=== PATIENT | female | born 1975 | race Caucasian/White ===

== ENCOUNTER 2022-03-17 16:30 | Inpatient (IN) | payer MEDICAID ==
[~2022-03-17] VITALS: Ht 160 cm; Wt 70.4 kg
[2022-03-17] MEDS ORDERED: SODIUM CHLORIDE 0.9% 1,000 ML IV ONE (17:45)
[2022-03-17 18:29] LABS: BASOPHILS % 0.4 % (0.0-2.0); EOSINOPHILS % 0.9 % (0.0-5.0); HEMATOCRIT. 35.8 % (36.0-48.0); HEMOGLOBIN. 12.3 g/dL (12.0-16.0); LYMPHOCYTES % 10.5 % (20.0-50.0); MEAN CORPUSCULAR HEMOGLOBIN 28.8 pg (28.0-32.0); MEAN CORPUSCULAR VOLUME 83.5 fL (81.0-99.0); MEAN PLATELET VOLUME 7.5 fl (7.4-10.4); MONOCYTES % 5.7 % (2.0-8.0); NEUTROPHILS % 82.5 % (40.0-76.0); PLATELET 166 x1000/uL (130-400); RED BLOOD CELL COUNT 4.29 mill/uL (4.2-5.4); RED CELL DISTRIBUTION WIDTH 17.8 % (11.6-14.6)
[2022-03-17 18:35] LABS: CHLORIDE 110 mEq/L (98-107)
[2022-03-17 18:36] LABS: HCG SCREEN NEGATIVE
[2022-03-17] MEDS ORDERED: LORAZEPAM 2MG/ML CPJ IV ONE (19:00)
[2022-03-17] MEDS ORDERED: POTASSIUM CHLORIDE 20MEQ TABLET SR PO ONE (19:00)
[2022-03-17] MEDS ORDERED: ASPIRIN 325MG EC TABLET PO ONE (19:00)
[2022-03-18] MEDS ORDERED: ACETAMINOPHEN 325MG TABLET PO PRN (09:30)
[2022-03-18] MEDS ORDERED: ONDANSETRON HCL 4MG/2ML INJ IV PRN (09:30)
[2022-03-18 12:00] VITALS: BP 91/55
[2022-03-18] MEDS: RISPERIDONE 0.25MG TABLET PO SCH ×2 (14:00→21:00)
[2022-03-18] MEDS ORDERED: RISPERIDONE 0.5MG TABLET PO SCH (14:00)
[2022-03-18 16:00] VITALS: BP 104/64
[2022-03-18 20:00] VITALS: BP 92/45
[2022-03-19] VITALS: BP 114/51
[2022-03-19 04:00] VITALS: BP 101/55
[2022-03-19 06:35] LABS: BASOPHILS % 0.7 % (0.0-2.0); EOSINOPHILS % 1.8 % (0.0-5.0); HEMATOCRIT. 32.1 % (36.0-48.0); HEMOGLOBIN. 11.3 g/dL (12.0-16.0); LYMPHOCYTES % 15.1 % (20.0-50.0); MEAN CORPUSCULAR HEMOGLOBIN 29.2 pg (28.0-32.0); MEAN CORPUSCULAR VOLUME 83.1 fL (81.0-99.0); MEAN PLATELET VOLUME 7.4 fl (7.4-10.4); MONOCYTES % 7.4 % (2.0-8.0); PLATELET 123 x1000/uL (130-400); RED BLOOD CELL COUNT 3.86 mill/uL (4.2-5.4); RED CELL DISTRIBUTION WIDTH 17.9 % (11.6-14.6)
[2022-03-19 06:38] LABS: CHLORIDE 111 mEq/L (98-107)
[2022-03-19] MEDS ORDERED: POTASSIUM CHLORIDE INJ 60 MEQ in DEXT 5% WATER 250 ML IV ONE (07:00)
[2022-03-19 08:00] VITALS: BP 92/53
[2022-03-19] MEDS: KCL 20MEQ/100ML X 2 FOR TOTAL KCL 40MEQ/200ML IV SCH ×3 (08:54→16:15)
[2022-03-19] MEDS: RISPERIDONE 0.25MG TABLET PO SCH ×2 (08:55→20:14)
[2022-03-19 12:00] VITALS: BP 86/52
[2022-03-19] MEDS ORDERED: SODIUM CHLORIDE 0.9% 250 ML IV ONE (12:00)
[2022-03-19 15:36] LABS: CLARITY URINE TURBID (CLEAR); COLOR URINE DARK YELLOW (YELLOW); KETONES URINE 2+ (NEGATIVE); LEUKOCYTE ESTERASE URINE 2+ (NEGATIVE); NITRITE URINE POSITIVE (NEGATIVE); OCCULT BLOOD URINE 3+ (NEGATIVE); PROTEIN URINE 2+ (NEGATIVE); SPECIFIC GRAVITY URINE 1.024 (1.005-1.030)
[2022-03-19 16:00] VITALS: BP 88/53
[2022-03-19] MEDS: CEFTRIAXONE 1,000 MG in DEXTROSE 5% WATER 50 ML IV SCH (18:06)
[2022-03-19 20:00] VITALS: BP 114/66
[2022-03-20] VITALS: BP 100/77
[2022-03-20 04:00] VITALS: BP 100/59
[2022-03-20 08:00] VITALS: BP 93/54
[2022-03-20] MEDS: RISPERIDONE 0.25MG TABLET PO SCH ×2 (08:18→21:36)
[2022-03-20 10:31] LABS: BASOPHILS % 0.5 % (0.0-2.0); HEMOGLOBIN. 12.3 g/dL (12.0-16.0); LYMPHOCYTES % 12.6 % (20.0-50.0); MEAN CORPUSCULAR VOLUME 82.3 fL (81.0-99.0); MEAN PLATELET VOLUME 7.5 fl (7.4-10.4); MONOCYTES % 7.3 % (2.0-8.0); NEUTROPHILS % 77.6 % (40.0-76.0); PLATELET 122 x1000/uL (130-400); RED BLOOD CELL COUNT 4.26 mill/uL (4.2-5.4)
[2022-03-20 11:09] LABS: CHLORIDE 106 mEq/L (98-107)
[2022-03-20 12:00] VITALS: BP 90/57
[2022-03-20] MEDS: POTASSIUM CHLORIDE 20MEQ TABLET SR PO SCH ×2 (12:18→16:54)
[2022-03-20 16:00] VITALS: BP 106/71
[2022-03-20] MEDS: CEFTRIAXONE 1,000 MG in DEXTROSE 5% WATER 50 ML IV SCH (17:00)
[2022-03-20 20:00] VITALS: BP 102/68
[2022-03-21] VITALS: BP 99/50
[2022-03-21 04:00] VITALS: BP 102/66
[2022-03-21 07:07] LABS: BASOPHILS % 0.4 % (0.0-2.0); EOSINOPHILS % 2.5 % (0.0-5.0); HEMOGLOBIN. 12.4 g/dL (12.0-16.0); LYMPHOCYTES % 17.2 % (20.0-50.0); MEAN CORPUSCULAR HEMOGLOBIN 29.2 pg (28.0-32.0); MEAN CORPUSCULAR VOLUME 82.1 fL (81.0-99.0); MEAN PLATELET VOLUME 7.6 fl (7.4-10.4); MONOCYTES % 8.9 % (2.0-8.0); PLATELET 110 x1000/uL (130-400); RED BLOOD CELL COUNT 4.26 mill/uL (4.2-5.4); RED CELL DISTRIBUTION WIDTH 17.4 % (11.6-14.6)
[2022-03-21 07:31] LABS: CHLORIDE 104 mEq/L (98-107)
[2022-03-21 08:00] VITALS: BP_SYST 127; BP_SYST 129; BP_DIAS 70
[2022-03-21] MEDS: RISPERIDONE 0.25MG TABLET PO SCH ×2 (09:34→21:12)
[2022-03-21 12:00] VITALS: BP 102/70
[2022-03-21 16:00] VITALS: BP 109/75
[2022-03-21] MEDS ORDERED: POTASSIUM CHLORIDE 20MEQ TABLET SR PO SCH (17:30)
[2022-03-21] MEDS: CEFTRIAXONE 1,000 MG in DEXTROSE 5% WATER 50 ML IV SCH (17:41)
[2022-03-21 20:00] VITALS: BP 94/59
[2022-03-22] VITALS: BP 92/62
[2022-03-22 04:00] VITALS: BP 105/50
[2022-03-22 08:00] VITALS: BP 120/74
[2022-03-22] MEDS: RISPERIDONE 0.25MG TABLET PO SCH ×2 (09:07→20:10)
[2022-03-22 12:00] VITALS: BP 105/70
[2022-03-22 16:00] VITALS: BP 122/78
[2022-03-22] MEDS: CEFTRIAXONE 1,000 MG in DEXTROSE 5% WATER 50 ML IV SCH (17:59)
[2022-03-22 20:00] VITALS: BP 114/64
[2022-03-23] VITALS: BP 127/66
[2022-03-23 08:00] VITALS: BP 108/69
[2022-03-23] MEDS: RISPERIDONE 0.25MG TABLET PO SCH ×2 (08:24→20:32)
[2022-03-23 12:00] VITALS: BP_SYST 102; BP_SYST 114; BP_DIAS 55; BP_DIAS 75
[2022-03-23] MEDS: LEVOFLOXACIN 250MG TABLET PO SCH (14:02)
[2022-03-23 16:00] VITALS: BP 110/62
[2022-03-23 18:05] LABS: CHLORIDE 101 mEq/L (98-107)
[2022-03-23 20:00] VITALS: BP 104/69
[2022-03-24] VITALS: BP 106/73
[2022-03-24 04:00] VITALS: BP 106/73
[2022-03-24 08:00] VITALS: BP 104/61
[2022-03-24] MEDS: RISPERIDONE 0.25MG TABLET PO SCH (08:50)
[2022-03-24] MEDS: POTASSIUM CHLORIDE 20MEQ TABLET SR PO NR ×2 (11:00→12:26)
[2022-03-24] MEDS: LEVOFLOXACIN 250MG TABLET PO SCH ×2 (11:00→12:26)
[2022-03-24 12:29] VITALS: BP 108/70
[2022-03-24 13:34] VITALS: BP 108/80
== END 2022-03-24 15:23 | DRG 48 ==
LOC: ER 16:30 → EDBEDREQ 20:28 → EDBEDREQTM 20:28 → EDBEDREQ 22:51 → MICUSO 23:19 → 8WST 03-18 12:29 → 6EST 03-22 11:04
PROVIDERS: ADMIT Internal Medicine; ATTEND Internal Medicine
DX: G90.8 Other disorders of autonomic nervous system (principal); E44.0 Moderate protein-calorie malnutrition; I95.9 Hypotension, unspecified; F29 Unspecified psychosis not due to a substance or known physiological condition; E87.6 Hypokalemia; Z20.822 Contact with and (suspected) exposure to COVID-19; N39.0 Urinary tract infection, site not specified; F32.A Depression, unspecified; Z68.27 Body mass index [BMI] 27.0-27.9, adult; Z73.6 Limitation of activities due to disability
CPT/HCPCS: 36415; 71045; 80048; 80053; 81003; 83605; 83735; 83880; 84484; 84703; 85025; 87077; 87186; 87426; 93005; 99285; J0696; J3480; J7030; J7060